=== PATIENT | female | born 1985 | race Caucasian/White ===

== ENCOUNTER → 2023-06-22 07:20 | Outpatient (REF) | payer OTHER, SELFPAY | LOC: MRI 3T 07:20 | PROVIDERS: ATTENDING PHYSICIAN Psychiatry & Neurology Neurology; FAMILY PHYSICIAN Family Medicine | DX: G35 Multiple sclerosis (principal) | CPT/HCPCS: 70553; A9575 ==

== ENCOUNTER → 2023-06-24 07:23 | Outpatient (REF) | payer OTHER, SELFPAY | LOC: MRI 3T 07:23 | PROVIDERS: ATTENDING PHYSICIAN Psychiatry & Neurology Neurology; FAMILY PHYSICIAN Family Medicine | DX: G35 Multiple sclerosis (principal); G95.0 Syringomyelia and syringobulbia | CPT/HCPCS: 72156; A9575 ==

== ENCOUNTER → 2023-11-08 18:44 | Outpatient (REF) | payer OTHER, SELFPAY | LOC: MRI 3T 18:44 | PROVIDERS: ATTENDING PHYSICIAN Psychiatry & Neurology Neurology; FAMILY PHYSICIAN Family Medicine | DX: G35 Multiple sclerosis (principal) | CPT/HCPCS: 72156; A9575 ==

== ENCOUNTER → 2023-12-16 10:46 | Outpatient (REF) | payer OTHER, SELFPAY | LOC: MRI 3T 10:46 | PROVIDERS: ATTENDING PHYSICIAN Psychiatry & Neurology Neurology; FAMILY PHYSICIAN Family Medicine | DX: G35 Multiple sclerosis (principal); G95.0 Syringomyelia and syringobulbia | CPT/HCPCS: 72157; A9575 ==

== ENCOUNTER → 2023-12-28 10:38 | Outpatient (REF) | payer OTHER, SELFPAY | LOC: PAVMRI 10:38 | PROVIDERS: ATTENDING PHYSICIAN Psychiatry & Neurology Neurology; FAMILY PHYSICIAN Family Medicine | DX: G35 Multiple sclerosis (principal) | CPT/HCPCS: 70553; A9575 ==